=== PATIENT | male | born 1955 | race Caucasian/White ===

== ENCOUNTER → 2019-04-05 | Outpatient (CLI) | payer OTHER ==
[~2019-04-05] MED LIST: ALLO300T PO; ASPI-496 PO; IBUP-1223 PO; LISI-167 PO; ZOLP10TA PO
[2019-04-05 10:13] LABS: BASOPHILS # (AUTO) 0.04 x10^3/uL (0-0.1); BASOPHILS % (AUTO) 1 % (0-1); EOSINOPHILS # (AUTO) 0.12 x10^3/uL (0-0.4); EOSINOPHILS % (AUTO) 2 % (1-7); LYMPHOCYTES # (AUTO) 1.94 x10^3/uL (1-3.4); LYMPHOCYTES % (AUTO) 27 % (22-44); MD NO; MEAN CORPUSCULAR HEMOGLOBIN 31.5 pg (27.5-34.5); MEAN CORPUSCULAR HGB CONC 33.3 g/dL (33.2-36.2); MEAN CORPUSCULAR VOLUME 94.6 fL (81-97); MEAN PLATELET VOLUME 7.9 fL (7.4-10.4); MONOCYTES # (AUTO) 0.57 x10^3/uL (0.2-0.8); MONOCYTES % (AUTO) 8 % (2-9); NEUTROPHILS # (AUTO) 4.51 x10^3/uL (1.8-6.8); NEUTROPHILS % (AUTO) 63 % (42-75); PLATELET COUNT 272 x10^3/uL (130-400); RED BLOOD COUNT 5.03 x10^6/uL (4.38-5.82); RED CELL DISTRIBUTION WIDTH 13.4 % (9.4-14.8)
[2019-04-05 10:14] LABS: MICROSCOPIC NOT IND
[2019-04-05 10:22] LABS: CULTURE INDICATED? NO
[2019-04-05 10:22] LABS: INTERNATIONAL NORMALIZED RATIO 1.02 (0.93-1.1); PROTHROMBIN TIME 10.8 Seconds (9.6-11.5)
[2019-04-05 10:25] LABS: ALANINE AMINOTRANSFERASE 44 U/L (12-78); ALBUMIN 4.3 g/dL (3.4-5.0); ANION GAP 7 mmol/L (5-15); CALCIUM 8.8 mg/dL (8.5-10.1); CHLORIDE 107 mmol/L (98-107); CREATININE 1.02 mg/dL (0.7-1.3)
[2019-04-05 10:27] LABS: ALKALINE PHOSPHATASE 53 U/L (45-117); BILIRUBIN,TOTAL 1.7 mg/dL (0.2-1.0); TOTAL PROTEIN 7.7 g/dL (6.4-8.2)
== END | disposition home or self-care (01) ==
LOC: STAR 09:07
PROVIDERS: ATTEND Neurological Surgery
DX: Z01.818 Encounter for other preprocedural examination (principal); M47.26 Other spondylosis with radiculopathy, lumbar region; M43.16 Spondylolisthesis, lumbar region; M51.36 Other intervertebral disc degeneration, lumbar region; R79.1 Abnormal coagulation profile; R82.90 Unspecified abnormal findings in urine; R94.31 Abnormal electrocardiogram [ECG] [EKG]; M54.5 Low back pain
CPT/HCPCS: 36415; 71046; 80053; 81003; 85025; 85610; 85730; 93005

== ENCOUNTER 2019-04-24 07:16 | Inpatient (IN) | payer OTHER ==
[~2019-04-24] VITALS: Ht 193 cm; Wt 131.0 kg
[~2019-04-24 07:16] MED LIST changes: +BACITRACIN 50,000 UNIT ONE; +BUPIVACAINE/PF-EPI 0.5% 1:200K ONE; +HEPARIN 1,000 UNITS/ML, 30ML ONE; +THROMBIN 5,000 UNIT VIAL TP ONE
[2019-04-24] MEDS ORDERED: LACTATED RINGERS 1,000 ML IV SCH (07:54)
[2019-04-24] MEDS ORDERED: MIDAZOLAM 1 MG/ML, 2ML ONE (08:20)
[2019-04-24] MEDS ORDERED: FENTANYL PF 250 MCG/5ML ONE (08:20)
[2019-04-24] MEDS ORDERED: DEXAMETHASONE 4 MG/ML, 1ML ONE (09:14)
[2019-04-24] MEDS ORDERED: ROCURONIUM 10 MG/ML,10ML ONE (09:14)
[2019-04-24] MEDS ORDERED: CEFAZOLIN 1,000 MG ONE (09:14)
[2019-04-24] MEDS ORDERED: SUCCINYLCHOLINE 20 MG/ML, 10ML ONE (09:14)
[2019-04-24] MEDS ORDERED: ONDANSETRON 2MG/ML, 2ML ONE (09:14)
[2019-04-24] MEDS ORDERED: PROPOFOL 10 MG/ML, 20ML ONE (09:14)
[2019-04-24] MEDS ORDERED: ALBUTEROL SULFATE 2.5 MG/3 ML NPPB PRN (10:00)
[2019-04-24] MEDS ORDERED: PROMETHAZINE 25 MG/ML, 1ML IV PRN (10:00)
[2019-04-24] MEDS ORDERED: LABETALOL 5MG/ML, 20ML IV PRN (10:00)
[2019-04-24] MEDS ORDERED: MEPERIDINE/PF 25MG/0.5ML IVPush PRN (10:00)
[2019-04-24] MEDS ORDERED: DIAZEPAM 5 MG/ML, 2ML IV PRN ×2 (10:00)
[2019-04-24] MEDS ORDERED: METOCLOPRAMIDE 5 MG/ML, 2ML IV PRN (10:00)
[2019-04-24] MEDS ORDERED: OXYcodone 5 MG/5 ML ORAL.SOL UDC PO PRN (10:00)
[2019-04-24] MEDS ORDERED: ONDANSETRON 2MG/ML, 2ML IVPush PRN (10:00)
[2019-04-24] MEDS ORDERED: hydrALAzine 20 MG/ML, 1ML IV PRN (10:00)
[2019-04-24] MEDS ORDERED: KETOROLAC 30 MG/1 ML IV PRN (10:00)
[2019-04-24] MEDS ORDERED: HEPARIN 1,000 UNITS/ML, 30ML IVPB ONE (11:08)
[2019-04-24] MEDS ORDERED: OXYcodone 5 MG/5 ML ORAL.SOL UDC ONE (12:08)
[2019-04-24] MEDS ORDERED: FENTANYL PF 100 MCG/2ML ONE (12:08)
[2019-04-24] MEDS: FENTANYL PF 100 MCG/2ML IV PRN ×2 (12:08→12:20)
[2019-04-24] MEDS ORDERED: METHOCARBAMOL 1,000 MG in DEXTROSE 5% 100 ML IV ONE ×2 (12:30→15:00)
[2019-04-24] MEDS ORDERED: HYDROmorphone 1 MG/ML, 1ML INJ ONE (12:35)
[2019-04-24] MEDS: HYDROmorphone 1 MG/ML, 1ML INJ IV PRN ×2 (12:37→12:56)
[2019-04-24] MEDS ORDERED: HYDROmorphone 2 MG/ML, 1ML ONE (14:23)
[2019-04-24] MEDS ORDERED: PROMETHAZINE 25 MG/ML, 1ML IM PRN (14:30)
[2019-04-24] MEDS ORDERED: ONDANSETRON 2MG/ML, 2ML IV PRN (14:30)
[2019-04-24] MEDS ORDERED: DIPHENHYDRAMINE 50 MG/ML, 1ML IM PRN (14:30)
[2019-04-24] MEDS ORDERED: DIPHENHYDRAMINE 50 MG/ML, 1ML IVPush PRN (14:30)
[2019-04-24] MEDS ORDERED: BISACODYL 10 MG SUPP PR PRN (14:30)
[2019-04-24] MEDS ORDERED: MAGNESIUM HYDROXIDE 8%, 30ML UDC PO PRN (14:30)
[2019-04-24] MEDS ORDERED: HYDROmorphone 2MG TABLET PO PRN (15:00)
[2019-04-24] MEDS ORDERED: HYDROmorphone 2 MG/ML, 1ML IM PRN (15:00)
[2019-04-24] MEDS ORDERED: DIPHENHYDRAMINE 25 MG CAPSULE PO PRN (15:00)
[2019-04-24] MEDS: LISINOPRIL 10 MG TABLET PO SCH ×2 (16:40→16:43)
[2019-04-24] MEDS: CEFAZOLIN PMX 1GM/50ML 50 ML IVPB SCH (16:40)
[2019-04-24] MEDS: D5%-0.9% NACL+KCL 20MEQ 1,000 ML IV SCH (16:40)
[2019-04-24] MEDS: ALLOPURINOL 300 MG TABLET PO SCH (16:40)
[2019-04-24] MEDS: HYDROcodone/APAP 5/325 TABLET PO PRN ×3 (16:50→22:05)
[2019-04-24 19:26] VITALS: BP 118/72
[2019-04-25 00:07] VITALS: BP 116/70
[2019-04-25] MEDS: D5%-0.9% NACL+KCL 20MEQ 1,000 ML IV SCH ×3 (01:00→21:00)
[2019-04-25] MEDS: HYDROcodone/APAP 5/325 TABLET PO PRN ×2 (02:04→20:09)
[2019-04-25] MEDS: ZOLPIDEM 10MG TABLET PO PRN ×2 (02:07→20:07)
[2019-04-25] MEDS: CEFAZOLIN PMX 1GM/50ML 50 ML IVPB SCH ×2 (02:08→16:11)
[2019-04-25 04:01] VITALS: BP 111/64
[2019-04-25] MEDS ORDERED: BACITRACIN 50,000 UNIT ONE (06:24)
[2019-04-25] MEDS ORDERED: VANCOMYCIN 1,000 MG ONE (06:24)
[2019-04-25] MEDS ORDERED: BUPIVACAINE/PF-EPI 0.5% 1:200K ONE (06:24)
[2019-04-25 06:57] VITALS: BP 108/68
[2019-04-25] MEDS ORDERED: ONDANSETRON 2MG/ML, 2ML ONE (08:00)
[2019-04-25] MEDS ORDERED: NEOSTIGMINE 1 MG/ML, 10ML ONE (08:00)
[2019-04-25] MEDS ORDERED: CEFAZOLIN 1,000 MG ONE (08:00)
[2019-04-25] MEDS ORDERED: GLYCOPYRROLATE 0.2MG/1ML, 5ML ONE (08:00)
[2019-04-25] MEDS ORDERED: ROCURONIUM 10MG/ML,5ML ONE (08:00)
[2019-04-25] MEDS ORDERED: DEXAMETHASONE 4 MG/ML, 1ML ONE (08:00)
[2019-04-25] MEDS ORDERED: SUCCINYLCHOLINE 20 MG/ML, 10ML ONE (08:00)
[2019-04-25] MEDS ORDERED: PROPOFOL 10 MG/ML, 20ML ONE (08:00)
[2019-04-25] MEDS ORDERED: FENTANYL PF 100 MCG/2ML ONE ×2 (08:01→11:10)
[2019-04-25] MEDS ORDERED: MIDAZOLAM 1 MG/ML, 2ML ONE (08:01)
[2019-04-25] MEDS: LISINOPRIL 10 MG TABLET PO SCH (09:00)
[2019-04-25] MEDS ORDERED: PHENYLEPHRINE 10 MG/ML ONE (09:16)
[2019-04-25] MEDS ORDERED: VANCOMYCIN 1,000 MG IM ONE (09:48)
[2019-04-25] MEDS ORDERED: MEPERIDINE/PF 25MG/ML,1ML IVPush PRN (10:30)
[2019-04-25] MEDS ORDERED: PROMETHAZINE 25 MG/ML, 1ML IV PRN (10:30)
[2019-04-25] MEDS: FENTANYL PF 100 MCG/2ML IV PRN ×2 (11:08→11:24)
[2019-04-25] MEDS ORDERED: OXYcodone 5 MG/5 ML ORAL.SOL UDC ONE (11:10)
[2019-04-25] MEDS ORDERED: HYDROmorphone 2 MG/ML, 1ML ONE (11:10)
[2019-04-25] MEDS: HYDROmorphone 2 MG/ML, 1ML IVPush PRN ×2 (11:27→11:38)
[2019-04-25] MEDS ORDERED: OXYcodone 5 MG/5 ML ORAL.SOL UDC PO PRN (11:30)
[2019-04-25] MEDS ORDERED: METHOCARBAMOL 1000MG/10 ML IVPB ONE (11:30)
[2019-04-25] MEDS ORDERED: DIPHENHYDRAMINE 50 MG/ML, 1ML ONE (11:50)
[2019-04-25] MEDS ORDERED: METHOCARBAMOL 1,000 MG in DEXTROSE 5% 100 ML IV ONE (12:00)
[2019-04-25 13:10] VITALS: BP 120/74
[2019-04-25] MEDS: SENNA/DOCUSATE TABLET PO SCH (16:09)
[2019-04-25] MEDS: ALLOPURINOL 300 MG TABLET PO SCH (16:09)
[2019-04-25] MEDS: HYDROcodone/APAP 10/325 MG TABLET PO PRN (16:10)
[2019-04-25 17:20] VITALS: BP 113/70
[2019-04-25 19:02] VITALS: BP 105/65
[2019-04-25] MEDS: METHOCARBAMOL 750 MG TABLET PO PRN (20:07)
[2019-04-26] MEDS: CEFAZOLIN PMX 1GM/50ML 50 ML IVPB SCH (00:27)
[2019-04-26] MEDS: HYDROcodone/APAP 5/325 TABLET PO PRN ×3 (00:30→23:34)
[2019-04-26 03:43] VITALS: BP 98/61
[2019-04-26] MEDS: ENOXAPARIN 40 MG/0.4 ML SQ SCH (05:39)
[2019-04-26] MEDS: METHOCARBAMOL 750 MG TABLET PO PRN ×3 (05:40→22:01)
[2019-04-26] MEDS: D5%-0.9% NACL+KCL 20MEQ 1,000 ML IV SCH ×2 (07:00→17:00)
[2019-04-26 07:57] VITALS: BP 105/65
[2019-04-26] MEDS: ALLOPURINOL 300 MG TABLET PO SCH (09:52)
[2019-04-26] MEDS: LISINOPRIL 10 MG TABLET PO SCH (09:52)
[2019-04-26] MEDS: SENNA/DOCUSATE TABLET PO SCH (09:52)
[2019-04-26] MEDS: HYDROcodone/APAP 10/325 MG TABLET PO PRN ×4 (09:54→19:33)
[2019-04-26 14:10] VITALS: BP 126/74
[2019-04-26 21:50] VITALS: BP 126/73
[2019-04-26] MEDS: ZOLPIDEM 10MG TABLET PO PRN (22:01)
[2019-04-27] MEDS: D5%-0.9% NACL+KCL 20MEQ 1,000 ML IV SCH (03:00)
[2019-04-27 03:59] VITALS: BP 135/81
[2019-04-27 05:49] LABS: CREATININE 0.84 mg/dL (0.7-1.3)
[2019-04-27] MEDS: ENOXAPARIN 40 MG/0.4 ML SQ SCH (06:23)
[2019-04-27] MEDS: METHOCARBAMOL 750 MG TABLET PO PRN (06:26)
[2019-04-27 08:50] VITALS: BP 154/92
[2019-04-27] MEDS: SENNA/DOCUSATE TABLET PO SCH (08:51)
[2019-04-27] MEDS: ALLOPURINOL 300 MG TABLET PO SCH (08:52)
[2019-04-27] MEDS: HYDROcodone/APAP 5/325 TABLET PO PRN (08:52)
[2019-04-27] MEDS: LISINOPRIL 10 MG TABLET PO SCH (08:52)
[2019-04-27] MEDS ORDERED: HYDR-3240 PO (09:19)
[2019-04-27] MEDS ORDERED: METH750T87 PO (09:19)
== END 2019-04-27 11:11 | disposition home or self-care (01) | DRG 455 ==
LOC: ORIP 07:16 → 4NE 13:50 → DCLOUNGE 04-27 11:01
PROVIDERS: ADMIT Neurological Surgery; ATTEND Neurological Surgery
PROC: 0SG30A0 Fusion of Lumbosacral Joint with Interbody Fusion Device, Anterior Approach, Anterior Column, Open Approach (ICD-10-PCS; 2019-04-24)
PROC: 0ST20ZZ Resection of Lumbar Vertebral Disc, Open Approach (ICD-10-PCS; 2019-04-24)
PROC: 0SG00A0 Fusion of Lumbar Vertebral Joint with Interbody Fusion Device, Anterior Approach, Anterior Column, Open Approach (ICD-10-PCS; principal; 2019-04-24 09:30)
PROC: 0SG0071 Fusion of Lumbar Vertebral Joint with Autologous Tissue Substitute, Posterior Approach, Posterior Column, Open Approach (ICD-10-PCS; 2019-04-25)
PROC: 0SG3071 Fusion of Lumbosacral Joint with Autologous Tissue Substitute, Posterior Approach, Posterior Column, Open Approach (ICD-10-PCS; 2019-04-25)
PROC: 01NB0ZZ Release Lumbar Nerve, Open Approach (ICD-10-PCS; 2019-04-25)
PROC: 01NR0ZZ Release Sacral Nerve, Open Approach (ICD-10-PCS; 2019-04-25)
PROC: 00NY0ZZ Release Lumbar Spinal Cord, Open Approach (ICD-10-PCS; 2019-04-25)
DX: M51.16 Intervertebral disc disorders with radiculopathy, lumbar region (principal); M43.17 Spondylolisthesis, lumbosacral region; M48.07 Spinal stenosis, lumbosacral region; M53.2X6 Spinal instabilities, lumbar region; I10 Essential (primary) hypertension; M10.9 Gout, unspecified; Z82.61 Family history of arthritis; Z82.3 Family history of stroke; Z83.6 Family history of other diseases of the respiratory system; G89.4 Chronic pain syndrome
CPT/HCPCS: 36415; 72100; 72131; 74018; 82565; C1713; G0378; J0690; J1100; J1170; J1644; J1650; J2250; J2405; J2704; J2710; J3010; J3370; C1763; C1889; J0330; J1200; J2370; J2800; J3480; J7120